=== PATIENT | male | born 1950 | race Caucasian/White ===

== ENCOUNTER → 2018-03-15 | Outpatient (CLI) | payer MEDICARE, BC, OTHER | LOC: M RAD 09:52 | DX: I65.23 Occlusion and stenosis of bilateral carotid arteries (principal); I65.01 Occlusion and stenosis of right vertebral artery | CPT/HCPCS: 93880 ==

== ENCOUNTER → 2019-04-07 | Outpatient (CLI) | payer MEDICARE, BC, OTHER ==
--- NOTE | 2019-04-07 17:28 | REP ---
Bilateral carotid artery duplex ultrasound: Peak flow velocity analysis: RIGHT LEFT ICA Peak flow velocity cm/sec 60.1 84.7 ICA Diastolic flow velocity cm/sec 20.5 25.9 ICA/CCA Ratio 0.57 1.04 ECA Peak flow velocity cm/sec 70.9 104.9 CCA Peak flow velocity cm/sec 104.7 81.2 There is mild atheromatous plaque bilaterally. The peak flow velocities are normal bilaterally. The findings indicate less than 50% narrowing bilaterally. There is no significant stenosis on the right or the left. There is antegrade flow in the vertebral arteries bilaterally. There is no interval change from the prior study dated 03/15/2018. Electronically Signed by Anjum Ramos MD 04/07/2019 05:20 P
== END ==
LOC: M RAD 15:53
PROVIDERS: ATTEND Surgery Vascular Surgery
DX: I65.8 Occlusion and stenosis of other precerebral arteries (principal)

== ENCOUNTER → 2020-07-13 | Outpatient (CLI) | payer MEDICARE, BC, OTHER ==
--- NOTE | 2020-07-13 15:06 | REP ---
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 Color Doppler interrogation demonstrates visible narrowing at the right bulb with turbulent flow and associated spectral broadening along with visible narrowing through the left bulb with relatively normal laminar flow and associated spectral broadening. Normal flow direction is appreciated in the left vertebral artery while the right vertebral artery is not identified. ICA peak systolic velocity: Right 85.2 cm/s; Left 123 cm/s ICA diastolic velocity: Right 21.3 cm/s; Left 15.5 cm/s ECA peak systolic velocity: Right 125 cm/s; Left 185 cm/s CCA peak systolic velocity: Right 177 cm/s; Left 140 cm/s ICA/CCA ratio: Right 0.5 cm/s; Left 0.9 cm/s IMPRESSION: Based on set standards, narrowing is felt to be in the less than 50% range bilaterally, although visible evaluation suggests narrowing approaching 65% at the left carotid bulb. <Electronically signed by Jaylen Myers > 07/13/20 [id number]
== END ==
LOC: M RAD 13:48
PROVIDERS: ATTEND Physician Assistant
DX: I65.23 Occlusion and stenosis of bilateral carotid arteries (principal)